=== PATIENT | female | born 1930 | race Caucasian/White ===

== ENCOUNTER 2017-05-13 21:49 | Emergency (ER) | payer MEDICARE, OTHER ==
[~2017-05-13] VITALS: Ht 157.5 cm; Wt 63.5 kg
--- NOTE | 2017-05-13 22:16 | NUR ---
BIB [facility], C/O OF SOB, COUGH FOR 3 WEEKS, NAD NOTED, VSS, RESP EVEN AND UNLABORED, PT IS ON OXYGEN VIA NC 2LPM, SAT 99%, PT WAS PUT ON GOWN AND MONITOR, AT .
--- NOTE | 2017-05-13 22:43 | NUR ---
BLOOD AND FLU SWAB SENT TO LAB.
[2017-05-13 23:09] LABS: BASOPHILS % (AUTO) 0.2 % (0.0-2.0); EOSINOPHILS % (AUTO) 0.4 % (0.0-6.0); HEMATOCRIT 34 % (33-45); HEMOGLOBIN 11.6 g/dL (11.5-14.8); LYMPHOCYTES # (AUTO) 1.2 /CMM (0.8-4.8); LYMPHOCYTES % (AUTO) 14.7 % (20.0-44.0); MEAN CORPUSCULAR HEMOGLOBIN 28 PG (26.0-33.0); MEAN CORPUSCULAR HGB CONC 34 g/dl (31.0-36.0); MEAN CORPUSCULAR VOLUME 81 fL (82-100); MONOCYTES # (AUTO) 0.8 /CMM (0.1-1.30); MONOCYTES % (AUTO) 9.9 % (2.0-12.0); NEUTROPHILS # (AUTO) 6.2 /CMM (1.8-8.9); NEUTROPHILS % (AUTO) 74.8 % (43.0-81.0); PLATELET COUNT (AUTO) 219 /CMM (150-450); RDW COEFFICIENT OF VARIATION 12.9 (11.5-15.0); RED BLOOD CELL COUNT(AUTO) 4.19 MIL/uL (4.0-5.2); WHITE BLOOD COUNT (AUTO) 8.3 K/uL (4.3-11.0)
[2017-05-13 23:23] LABS: CALCIUM, SERUM 8.4 mg/dL (8.5-10.1); CARBON DIOXIDE 29 mmol/L (21-32); CHLORIDE 96 mmol/L (98-107); CREATININE 0.7 mg/dL (0.6-1.3); GLUCOSE 137 mg/dL (74-106); POTASSIUM 3.7 mmol/L (3.5-5.1); SODIUM SERUM 133 mmol/L (136-145); UREA NITROGEN, BLOOD 12 mg/dL (7-18)
[2017-05-14 02:19] VITALS: BP 135/41
--- NOTE | 2017-05-14 03:29 | NUR ---
Patient discharged to home in stable condition. Written and verbal after care instructions given. Patient verbalizes understanding of instruction.IV removed. Catheter intact and site benign. Pressure and 4x4 applied to site. No bleeding noted. pt ambulatory with a steady gait
== END 2017-05-14 03:30 | disposition home or self-care (01) ==
LOC: ER 21:52
DX: R05 Cough (principal)
CPT/HCPCS: 36415; 71045; 80048; 85025; 87804; 99285; A4606; 87400; Z7610

== ENCOUNTER 2018-03-31 16:05 | Emergency (ER) | payer MEDICARE, OTHER ==
[~2018-03-31] VITALS: Ht 167.6 cm; Wt 65.8 kg
--- NOTE | 2018-03-31 16:16 | NUR ---
PT BIB [facility] WITH A C/O SLIP AND FALL IN THE BATHTUB. PT HAS A LAC ON BACK OF HEAD. - KO. PT'S CAREGIVER STATED THAT THE PT WAS WASHED AND DRESSED. CAREGIVER WAS DRYING PT'S HAIR, WHEN THE PHONE RANG. THE CAREGIVER STEPPED AWAY FOR A MOMENT TO GET THE PHONE AND THE PT TRIED TO GET INTO THE BATH AND SLIPPED. PT DENIES ANY NECK OR BACK PAIN. PT IS ABLE TO MOVE ALL EXTREMITIES. NO SHORTENING NOTED. PT IS SLIGHTLY HYPERTENSIVE.
[2018-03-31] MEDS ORDERED: TDAP [DIPH/PERTUSSIS/TET] 0.5 ML VIAL IM ONE ×2 (16:23→16:30)
[2018-03-31 16:31] LABS: BASOPHILS # (AUTO) 0.1 /CMM (0.0-0.2); BASOPHILS % (AUTO) 0.8 % (0.0-2.0); EOSINOPHILS % (AUTO) 0.4 % (0.0-6.0); HEMATOCRIT 38 % (33-45); HEMOGLOBIN 12.5 g/dL (11.5-14.8); LYMPHOCYTES % (AUTO) 21.4 % (20.0-44.0); MEAN CORPUSCULAR HGB CONC 32 g/dl (31.0-36.0); MEAN CORPUSCULAR VOLUME 83 fL (82-100); MONOCYTES # (AUTO) 0.8 /CMM (0.1-1.30); MONOCYTES % (AUTO) 7.9 % (2.0-12.0); NEUTROPHILS # (AUTO) 6.6 /CMM (1.8-8.9); NEUTROPHILS % (AUTO) 69.5 % (43.0-81.0); PLATELET COUNT (AUTO) 189 /CMM (150-450); RED BLOOD CELL COUNT(AUTO) 4.61 MIL/uL (4.0-5.2); WHITE BLOOD COUNT (AUTO) 9.5 K/uL (4.3-11.0)
[2018-03-31 16:47] LABS: CALCIUM, SERUM 8.4 mg/dL (8.5-10.1); CARBON DIOXIDE 29 mmol/L (21-32); CHLORIDE 102 mmol/L (98-107); CREATININE 0.8 mg/dL (0.6-1.3); GLUCOSE 140 mg/dL (74-106); POTASSIUM 4.4 mmol/L (3.5-5.1); SODIUM SERUM 139 mmol/L (136-145); UREA NITROGEN, BLOOD 19 mg/dL (7-18)
--- NOTE | 2018-03-31 17:00 | NUR ---
SORAIDA AND LIDO AT THE BEDSIDE FOR
[2018-03-31] MEDS ORDERED: LIDOCAINE HCL/PF 1% 30 ML SDV ONE (17:06)
--- NOTE | 2018-03-31 17:23 | NUR ---
PT REC'D SORAIDA.
[2018-03-31 17:46] VITALS: BP 158/72
[2018-03-31] MEDS ORDERED: ONDANSETRON 4 MG TAB.RAPDIS ONE (17:54)
[2018-03-31] MEDS ORDERED: ONDANSETRON 4 MG TAB.RAPDIS SL ONE (18:00)
--- NOTE | 2018-03-31 18:00 | NUR ---
PT VOMITTED X1. MD NOTIFIED AND NEW ORDERS GIVEN.
--- NOTE | 2018-03-31 18:13 | NUR ---
PT LEFT VIA WC. VSS. NAD NOTED. NO EMESIS NOTED. Patient discharged to home in stable condition. Written and verbal after care instructions given. Patient's daughter verbalizes understanding of instruction.
== END 2018-03-31 18:14 | disposition home or self-care (01) ==
LOC: ER 16:07
DX: S01.01XA Laceration without foreign body of scalp, initial encounter (principal); R55 Syncope and collapse; R07.89 Other chest pain; W18.09XA Striking against other object with subsequent fall, initial encounter; Y93.89 Activity, other specified; Y92.89 Other specified places as the place of occurrence of the external cause; Y99.8 Other external cause status
CPT/HCPCS: 12002; 36415; 70450; 71045; 80048; 84484; 85025; 85730; 90471; 90715; 93005; 99284; A4606; A6402; J3490; Q0162

== ENCOUNTER 2018-12-19 23:02 | Inpatient (IN) | payer MEDICARE, OTHER ==
[~2018-12-19] VITALS: Ht 154.9 cm; Wt 71.2 kg
--- NOTE | 2018-12-19 23:32 | NUR ---
KERA FROM HOME. TO ER BED 4. PETR AT BEDSIDE FOR INFORMATION. PT IS ALERT AND AWAKE. BROUGHT IN FOR C/O SOB. ACCORDING TO PETR PT HAS BEEN HAVING SOB AND CNOPN PRODUCTIVE COUGH FOR THE PAST 4-5 DAYS. PETR REPORTS THAT SHE HAS BEEN GIVING THE NEBULIZER BREATHIGNTX BUT IS NOT EFFECTIVE. NO RESP DISTRESS NOTED DURING ASSESSMENT, SATTING 100% ON RA, BREATHING EVEN AND UNLABORED. PT IS FEBRILE @ 101.9 AWAITING MD FOR EVAL.
--- NOTE | 2018-12-19 23:32 | NUR ---
Note undone in EDM - 12/19/18 at 2339 by FREEMAN BIBFAMILY FROM HOME. TO ER BED 4. PETR AT BEDSIDE FOR INFORMATION. PT IS ALERT AND AWAKE. BROUGHT IN FOR C/O SOB. ACCORDING TO PETR PT HAS BEEN HAVING SOB AND CNOPN PRODUCTIVE COUGH FOR THE PAST 4-5 DAYS. PETR REPORTS THAT SHE HAS BEEN GIVING THE NEBULIZER BREATHIGNTX BUT IS NOT EFFECTIVE. NO RESP DISTRESS NOTED DURING ASSESSMENT, SATTING 100% ON RA, BREATHING EVEN AND UNLABORED. AWAITING MD FOR EVAL.
[2018-12-20] VITALS (8 sets, daily range): BP systolic 129–155; BP diastolic 70–80
[2018-12-20] MEDS ORDERED: methylPREDNISolone SOD SUCC 125 MG/2ML VIAL ONE (00:10)
[2018-12-20] MEDS ORDERED: IPRATROPIUM NEB FS 0.5 MG/2.5 ML AMPUL.NEB NEB ONE (00:30)
[2018-12-20] MEDS ORDERED: ALBUTEROL FS 2.5 MG/3 ML VIAL.NEB NEB ONE (00:30)
[2018-12-20] MEDS ORDERED: methylPREDNISolone SOD SUCC 125 MG/2ML VIAL IV ONE (00:30)
--- NOTE | 2018-12-20 00:30 | NUR ---
RT PAGED FOR BREATHING TX
--- NOTE | 2018-12-20 00:30 | NUR ---
PT NOTED WITH BILAT LOWER LEG REDNESS AND SWELLING
[2018-12-20 00:35] LABS: BASOPHILS # (AUTO) 0.2 /CMM (0.0-0.2); BASOPHILS % (AUTO) 1.1 % (0.0-2.0); EOSINOPHILS % (AUTO) 1.2 % (0.0-6.0); HEMATOCRIT 34 % (33-45); HEMOGLOBIN 11.2 g/dL (11.5-14.8); LYMPHOCYTES # (AUTO) 1.8 /CMM (0.8-4.8); LYMPHOCYTES % (AUTO) 12.7 % (20.0-44.0); MEAN CORPUSCULAR HGB CONC 33 g/dl (31.0-36.0); MEAN CORPUSCULAR VOLUME 82 fL (82-100); MONOCYTES # (AUTO) 1.2 /CMM (0.1-1.30); MONOCYTES % (AUTO) 8.3 % (2.0-12.0); NEUTROPHILS # (AUTO) 10.9 /CMM (1.8-8.9); NEUTROPHILS % (AUTO) 76.7 % (43.0-81.0); PLATELET COUNT (AUTO) 225 /CMM (150-450); RED BLOOD CELL COUNT(AUTO) 4.18 MIL/uL (4.0-5.2); WHITE BLOOD COUNT (AUTO) 14.3 K/uL (4.3-11.0)
[2018-12-20] MEDS ORDERED: ALBUTEROL FS 2.5 MG/3 ML VIAL.NEB ONE (00:50)
[2018-12-20] MEDS ORDERED: IPRATROPIUM NEB FS 0.5 MG/2.5 ML AMPUL.NEB ONE (00:50)
[2018-12-20] MEDS ORDERED: VANCOMYCIN 1 GM VIAL ONE (01:03)
[2018-12-20] MEDS ORDERED: ACETAMINOPHEN ES 500 MG TABLET ONE (01:03)
[2018-12-20 01:08] LABS: CALCIUM, SERUM 8.8 mg/dL (8.5-10.1); CARBON DIOXIDE 27 mmol/L (21-32); CHLORIDE 103 mmol/L (98-107); CREATININE 0.8 mg/dL (0.6-1.3); GLUCOSE 125 mg/dL (74-106); POTASSIUM 3.7 mmol/L (3.5-5.1); SODIUM SERUM 138 mmol/L (136-145); UREA NITROGEN, BLOOD 17 mg/dL (7-18)
[2018-12-20 01:21] LABS: ALANINE AMINOTRANSFERASE 11 U/L (12-78); ALBUMIN 2.9 g/dL (3.4-5.0); ALKALINE PHOSPHATASE 95 U/L (46-116); ASPARTATE AMINOTRANSFERASE 17 U/L (15-37); B-TYPE NATRIURETIC PEPTIDE 417 PG/ML (0-125); BILIRUBIN,DIRECT 0.1 mg/dL (0.0-0.2); BILIRUBIN,TOTAL 0.4 mg/dL (0.2-1.0); TOTAL PROTEIN, SERUM 7.5 g/dL (6.4-8.2)
[2018-12-20] MEDS ORDERED: LEVOFLOXACIN 750 MG /D5W 150ML 150 ML IV ONE ×2 (01:30→02:52)
[2018-12-20] MEDS ORDERED: VANCOMYCIN 1 GM in IV D5W 250 ML IV ONE (01:30)
[2018-12-20] MEDS ORDERED: ACETAMINOPHEN ES 500 MG TABLET PO ONE (01:30)
--- NOTE | 2018-12-20 01:44 | NUR ---
CALLED RN SUP FOR TELE BED.
--- NOTE | 2018-12-20 01:46 | NUR ---
DR. MCHUGH SPOKE TO DIANE GEORGE REGARDING ADMISSION
--- NOTE | 2018-12-20 02:06 | NUR ---
TELE 309-2
[2018-12-20] MEDS ORDERED: MAGNESIUM HYDROXIDE 30 ML UDC PO PRN (02:30)
[2018-12-20] MEDS ORDERED: MAG HYDROX/AL HYDROX/SIMETH 30 ML UDC PO PRN (02:30)
[2018-12-20] MEDS ORDERED: Z GUARD REMEDY 2 OZ OINT TP PRN (02:30)
[2018-12-20] MEDS ORDERED: ACETAMINOPHEN 325 MG TABLET PO PRN (02:30)
[2018-12-20] MEDS ORDERED: HYDROCODONE/APAP 5/325MG 1 EACH TABLET PO PRN (02:30)
[2018-12-20] MEDS ORDERED: ONDANSETRON HCL/PF 4 MG/2 ML VIAL IVP PRN (02:30)
[2018-12-20] MEDS ORDERED: ZOLPIDEM TARTRATE 5 MG TABLET PO PRN (02:30)
--- NOTE | 2018-12-20 03:09 | NUR ---
REPORT GIVEN TO NICHOLAS CORBIN FOR TELE BED 309-2
[2018-12-20 03:14] LABS: BILIRUBIN,URINE NEGATIVE (NEGATIVE); BLOOD, URINE TRACE-INTA Ery/uL (NEGATIVE); COLOR,URINE YELLOW (YELLOW); KETONES,URINE NEGATIVE (NEGATIVE); LEUKOCYTE ESTERASE ,URINE MODERATE (NEGATIVE); NITRITE, URINE NEGATIVE (NEGATIVE); PROTEIN,URINE TRACE mg/dl (NEGATIVE); UGLUCOSE NEGATIVE (NEGATIVE); UROBILINOGEN,URINE 0.2 EU/dL (0.2)
[2018-12-20] MEDS ORDERED: ENOXAPARIN SODIUM 60 MG/0.6 ML DISP.SYRIN SQ ONE (03:22)
[2018-12-20] MEDS ORDERED: ENOXAPARIN SODIUM 60 MG/0.6 ML DISP.SYRIN SQ SCH (03:30)
--- NOTE | 2018-12-20 03:35 | NUR ---
INTER COM INSTALLERWASHER CUTTER NOTES Received patient from ER, via rney, accompanied by 2 ER staff. Admitted to telemetry 309-2 due to Sepsis under the service of DIANE Ellis. Assisted patient to bed comfortably. Patient noted unable to ambulate. Admission routine done. Patient belongings inventory completed by the assigned PROCESS OWNER. Daughter at bedside for information. Initial skin assessment done, photos taken and documented. With Levaquin on going, to consumed as ordered. Put on tele monitor with NSR noted. Kept patient on bed clean, dry and comfortable. Instructed on the use of call light and emphasized to patient and family the importance of calling for help when getting off the bed. Admission orders noted and carried out. Elevated bilateral heel with a pillow. Patient needs reinforcement. Bed alarm on, on fall precautions. Call light at bedside. Will continue to monitor accordingly.
[2018-12-20 04:40] LABS: APPEARANCE,URINE HAZY (CLEAR)
[2018-12-20 04:42] LABS: WBC,URINE 21-50 /HPF (0-3)
[2018-12-20 04:43] LABS: BACTERIA,URINE Moderate /HPF (None Seen); MUCUS,URINE Few /LPF (None Seen); SQUAMOUS EPITHELIAL CELL,UR Few /HPF (None Seen)
--- NOTE | 2018-12-20 05:15 | NUR ---
MARKER ASSEMBLER NOTES Patient attempted to get off the bed without using the call light. Nurses alerted. Patient wanted to walk to the bathroom. Attempted to assist the patient to get out of bed. Patient complained she is feeling dizzy. Patient noted unable to stand despite the assistance. Provided bedside commode. Utilized 2-person assist. Patient able to sit on commode, no output noted. Assisted patient back to bed comfortably. On fall precautions. Will continue to monitor accordingly.
--- NOTE | 2018-12-20 06:33 | NUR ---
PASSENGER CONDUCTOR CLOSING NOTES Patient asleep on bed, on tele monitor, NSR noted. On RA, no SOB/respiratory distress noted. No s/sx of discomfort noted at this time. With peripheral IV line R hand G#20 SL, flushed with NS accordingly, no s/sx of infiltration noted. Monitored patient constantly and PRN. On fall precautions, call light within easy reach. Endorsed to the next shift.
[2018-12-20 06:44] LABS: BASOPHILS % (AUTO) 0.2 % (0.0-2.0); HEMATOCRIT 35 % (33-45); HEMOGLOBIN 11.1 g/dL (11.5-14.8); LYMPHOCYTES # (AUTO) 0.8 /CMM (0.8-4.8); MEAN CORPUSCULAR HGB CONC 32 g/dl (31.0-36.0); MEAN CORPUSCULAR VOLUME 82 fL (82-100); MONOCYTES # (AUTO) 0.3 /CMM (0.1-1.30); MONOCYTES % (AUTO) 2.1 % (2.0-12.0); NEUTROPHILS % (AUTO) 91.7 % (43.0-81.0); PLATELET COUNT (AUTO) 220 /CMM (150-450); RED BLOOD CELL COUNT(AUTO) 4.24 MIL/uL (4.0-5.2); WHITE BLOOD COUNT (AUTO) 13.1 K/uL (4.3-11.0)
[2018-12-20 06:55] LABS: CALCIUM, SERUM 8.8 mg/dL (8.5-10.1); CREATININE 0.9 mg/dL (0.6-1.3); PHOSPHORUS 3.1 mg/dL (2.5-4.9)
--- NOTE | 2018-12-20 07:20 | NUR ---
TELE/RN NOTE THE PATIENT IS RECEIVED IN BED. PATIENT IS AWAKE, ALERT AND ORIENTED TO SELF. ABLE TO MAKE NEEDS KNOWN VERBALLY. THE PATIENT IS IN NO APPARENT DISTRESS. DENIES PAIN. IN ROOM AIR AND DENIES SOB.RIGHT HAND G 20 PATENT AND SALINE LOCKED. BED LOW AND LOCKED. SIDE RAILS UP X3. CALL LIGHT WITHIN REACH. WILL CONTINUE TO MONITOR.
[2018-12-20] MEDS ORDERED: FEE PK DOSING 1 MIN EA MC ONE (07:57)
[2018-12-20] MEDS ORDERED: ASPI-1152 PO (08:51)
[2018-12-20] MEDS ORDERED: CYAN100096 PO (08:51)
[2018-12-20] MEDS ORDERED: MULT-24 PO (08:51)
[2018-12-20] MEDS ORDERED: DONE5TAB34 PO (08:51)
[2018-12-20] MEDS ORDERED: LEVO88TA5 PO (08:51)
[2018-12-20] MEDS ORDERED: AMLO5TAB9 PO (08:51)
[2018-12-20] MEDS ORDERED: DIAZ5TAB4 PO (08:51)
[2018-12-20] MEDS ORDERED: PROM118S4 PO (08:51)
[2018-12-20] MEDS ORDERED: PANT40TA4 PO (08:51)
--- NOTE | 2018-12-20 09:59 | NUR ---
MS/RN NOTE RECEIVED ORDER FROM MIRTHA SINGH FOR PT EVAL ORDER. THE ORDER IS READ BACK, VERIFIED. NOTED AND CARRIED OUT.
[2018-12-20] MEDS ORDERED: DIAZEPAM 5 MG TABLET PO PRN (10:30)
[2018-12-20] MEDS ORDERED: AMLODIPINE BESYLATE 5 MG TABLET PO PRN (10:30)
[2018-12-20] MEDS: DONEPEZIL 5 MG TABLET PO SCH (12:08)
[2018-12-20] MEDS: MULTIVITAMINS,THERAGRAN 1 UDTAB TABLET PO SCH (12:08)
[2018-12-20] MEDS: LEVOTHYROXINE SODIUM 88 MCG TABLET PO SCH (12:08)
[2018-12-20] MEDS: PANTOPRAZOLE 40 MG TABLET.DR PO SCH (12:08)
[2018-12-20] MEDS: ASPIRIN EC 81 MG TABLET.DR PO SCH (12:08)
--- NOTE | 2018-12-20 17:44 | NUR ---
MS/RN NOTE BLOOD PRESSURE IS NOTED 155/80 AND PULSE 78. PRN NORVASC 50MG PO IS GIVEN. WILL CONTINUE TO MONITOR. THE PATIENT IS IN NO APPARENT DISTRESS AT THIS TIME.
--- NOTE | 2018-12-20 18:27 | NUR ---
MS/RN NOTE RECHECKED BLOOD PRESSURE, PULSE AND NOTED 138/76 AND PULSE 75. THE PATIENT IN NO APPARENT DISTRESS.
--- NOTE | 2018-12-20 18:29 | NUR ---
MS/RN NOTE THE PATIENT IS ALERT AND ORIENTED X1. IN ROOM AIR AND SATURATION IS AT 97%. DENIES SOB. RESPIRATION REGULAR AND UNLABORED. DENIES PAIN. THE PATIENT IN NO APPARENT DISTRESS. RIGHT HAND G 20 PATENT AND SALINE LOCKED. BED LOW AND LOCKED. SIDE RAILS UP X3. BED ALARM ON. CALL LIGHT WITHIN REACH. WILL CONTINUE TO MONITOR.
--- NOTE | 2018-12-20 19:43 | NUR ---
MS RN OPENING NOTES RECEIVED PATIENT FROM MORNING SHIFT, ALERT AND ORIENTED X 1-2 KYRGYZ SPEAKING. AFEBRILE WITH NO S/S OF DISTRESS OBSERVED. BREATHING REGULAR AND UNLABORED ON ROOM AIR. RIGHT HAND G20 IV LINE INTACT AND PATENT WITH NO BLEEDING AND S/S OF INFECTION/INFILTRATION NOTED. SEEN WITH BILATERAL LOWER EXTREMITIES +3 EDEMA, BOTH LEGS KEPT ELEVATED. BRP, ASSISTED TO SIT ON THE BEDSIDE COMMODE WITH CLEAR YELLOW URINE IN MODERATE AMOUNT. BED LOW AND LOCKED ON SEMI FOWLERS POSITION. CALL LIGHT IN REACH. WILL CONTINUE TO MONITOR.
--- NOTE | 2018-12-21 01:00 | NUR ---
MS RN NOTES PATIENT VERBALIZED WANTING TO SLEEP, AMBIEN GIVEN BY MOUTH. WILL CONTINUE TO MONITOR.
[2018-12-21 06:26] LABS: CALCIUM, SERUM 8.9 mg/dL (8.5-10.1); CREATININE 0.8 mg/dL (0.6-1.3); POTASSIUM 4.5 mmol/L (3.5-5.1)
--- NOTE | 2018-12-21 06:41 | NUR ---
MS RN CLOSING NOTES PATIENT IN BED ALERT AND ORIENTED X 1 LATVIAN SPEAKING. AFEBRILE WITH NO S/S OF DISTRESS OBSERVED. BREATHING REGULAR AND UNLABORED ON ROOM AIR. RIGHT HAND G20 IV LINE INTACT AND PATENT WITH NO BLEEDING AND S/S OF INFECTION/INFILTRATION NOTED. BRP WITH ASSIST. BED LOW AND LOCKED ON SEMI FOWLERS POSITION. CALL LIGHT IN REACH. WILL ENDORSE TO MORNING SHIFT FOR ASHKAN.
[2018-12-21 08:00] VITALS: BP 124/69
[2018-12-21] MEDS: DONEPEZIL 5 MG TABLET PO SCH (09:05)
[2018-12-21] MEDS: PANTOPRAZOLE 40 MG TABLET.DR PO SCH (09:05)
[2018-12-21] MEDS: MULTIVITAMINS,THERAGRAN 1 UDTAB TABLET PO SCH (09:05)
[2018-12-21] MEDS: ASPIRIN EC 81 MG TABLET.DR PO SCH (09:05)
[2018-12-21] MEDS: LEVOTHYROXINE SODIUM 88 MCG TABLET PO SCH (09:06)
[2018-12-21] MEDS ORDERED: GUAIFENESIN 300 MG/15 ML UDC PO PRN (10:00)
[2018-12-21 16:00] VITALS: BP 139/69
--- NOTE | 2018-12-21 19:10 | NUR ---
RN INITIAL NOTES: RECEIVED REPORT FROM FLOWER PETERSON. PT IN BED, AWAKE, A/O X1, CONFUSED, BASELINE PER DAUGHTER. PT ON FALL PRECAUTIONS. NOTED IV ACCESS LEAKING, WILL START A NEW ONE. RESPIRATIONS EVEN AND UNLABORED, NO FACIAL GRIMACE NOTED. APPEARS CLAM AND COMFORTABLE, BED SIDE COMMODE AVAILABLE. SAFETY PRECAUTIONS FOR FALL INITIATED CALL LIGHT IN REACH, WILL CONTINUE MONITORING PT.
--- NOTE | 2018-12-21 19:36 | NUR ---
Patient resting in bed. On RA, on room air with no distress noted. Denies pain at this time. With peripheral IV line R hand G#20 SL, flushed with NS . Patient prefer to use BSC , moderate assistance needed , on fall precautions, call light within easy reach. Endorsed to the next shift.
[2018-12-21 20:00] VITALS: BP 138/69
[2018-12-21] MEDS ORDERED: VANCOMYCIN 0.75 GM in IV D5W 250 ML IV SCH (20:00)
[2018-12-21 20:10] VITALS: BP 138/69
--- NOTE | 2018-12-22 01:02 | NUR ---
RN NOTES: PT PROVIDED WITH SNACK, CONSUMED 100%
--- NOTE | 2018-12-22 02:12 | NUR ---
PRN ROBITUSSIN: PRN ROBITUSSIN ADMINISTERED FOR COUGH.
[2018-12-22] MEDS ORDERED: LEVOFLOXACIN 750 MG /D5W 150ML 750 MG in PREMIX 1 EA IV SCH (03:00)
[2018-12-22 06:32] LABS: BASOPHILS % (AUTO) 0.3 % (0.0-2.0); EOSINOPHILS % (AUTO) 2.8 % (0.0-6.0); HEMATOCRIT 34 % (33-45); LYMPHOCYTES # (AUTO) 1.6 /CMM (0.8-4.8); LYMPHOCYTES % (AUTO) 13.7 % (20.0-44.0); MEAN CORPUSCULAR HGB CONC 33 g/dl (31.0-36.0); MEAN CORPUSCULAR VOLUME 81 fL (82-100); MONOCYTES # (AUTO) 1.2 /CMM (0.1-1.30); MONOCYTES % (AUTO) 10.2 % (2.0-12.0); NEUTROPHILS # (AUTO) 8.3 /CMM (1.8-8.9); PLATELET COUNT (AUTO) 253 /CMM (150-450); RED BLOOD CELL COUNT(AUTO) 4.18 MIL/uL (4.0-5.2); WHITE BLOOD COUNT (AUTO) 11.4 K/uL (4.3-11.0)
--- NOTE | 2018-12-22 06:40 | NUR ---
rn closing notes: pt in bed, sleeping, remains on 2l oxygen via nc, respirations even and unlabored. no facial grimace noted. iv access remains patent and flushing well, on hl. vs remains stable, needs attended. Safety precautions for fall remains engaged, call light in reach, will endorse to day rn for continuity of care.
[2018-12-22 06:49] LABS: CALCIUM, SERUM 8.3 mg/dL (8.5-10.1); CREATININE 0.8 mg/dL (0.6-1.3); POTASSIUM 4.3 mmol/L (3.5-5.1)
[2018-12-22 08:00] VITALS: BP 127/71
[2018-12-22] MEDS: ASPIRIN EC 81 MG TABLET.DR PO SCH (09:04)
[2018-12-22] MEDS: MULTIVITAMINS,THERAGRAN 1 UDTAB TABLET PO SCH (09:04)
[2018-12-22] MEDS: DONEPEZIL 5 MG TABLET PO SCH (09:04)
[2018-12-22] MEDS: LEVOTHYROXINE SODIUM 88 MCG TABLET PO SCH (09:04)
[2018-12-22] MEDS: PANTOPRAZOLE 40 MG TABLET.DR PO SCH (09:05)
[2018-12-22] MEDS: VANCOMYCIN 1 GM in IV D5W 250 ML IV SCH (11:22)
--- NOTE | 2018-12-22 11:22 | NUR ---
MS/RN NOTE VANCOMYCIN 1 GM DUE AT 1000 IS ADMINISTERED AT 1122 BECAUSE THE PHARMACY`S LATE DELIVERY. PHARMACIST SONAM IS AWARE.
--- NOTE | 2018-12-22 13:23 | NUR ---
MS/RN NOTE THE PATIENT IS RECEIVED IN BED. PATIENT IS ALERT AND ORIENTED X1. DENIES PAIN. IN ROOM AIR AND DENIES SOB. RESPIRATION REGULAR AND UNLABORED. LFA G 20 PATENT AND SALINE LOCKED. BED LOW AND LOCKED. SIDE RAILS UP X3. CALL LIGHT WITHIN REACH. WILL CONTINUE TO MONITOR.
[2018-12-22 16:00] VITALS: BP 141/91
[2018-12-22] MEDS: LACTOBACILLUS RHAMNOSUS GG 1 EACH CAP.SPRINK PO SCH (17:56)
--- NOTE | 2018-12-22 18:15 | NUR ---
MS/RN NOTE THE PATIENT IS ALERT AND ORIENTED X1. IN ROOM AIR AND SATURATION IS AT 93%. DENIES SOB. RESPIRATION REGULAR AND UNLABORED. DENIES PAIN. THE PATIENT IN NO APPARENT DISTRESS. LFA G 22 PATENT AND SALINE LOCKED. PATIENT IN STABLE CONDITION. BED LOW AND LOCKED. SIDE RAILS UP X3. BED ALARM ON. CALL LIGHT WITHIN REACH. WILL ENDORSE TO EQUIPMENT TECHNICIAN.
--- NOTE | 2018-12-22 19:30 | NUR ---
MS RN OPENING NOTE RECEIVED PATIENT IN BED. A/OX1. BURMESE SPEAKING, ORIENTED TO CALL LIGHT, ABLE TO MAKE BASIC NEEDS KNOWN. TOLERATING ROOM AIR. RESPIRATIONS ARE EVEN AND UNLABORED. NO S/S SOB NOTED. DOESNT EXHIBIT AND S/S OF PAIN OR DISCOMFORT. IN NO APPARENT DISTRESS. IV ACCESS IN LFA#22 PATENT AND SALINE LOCKED. BED IS LOW AND LOCKED, SIDE RAILS UP X2, HOB ELEVATED 80 DEGREES. CALL LIGHT WITHIN REACH. WILL CONTINUE TO MONITOR.
[2018-12-22 20:00] VITALS: BP 147/67
[2018-12-22 20:11] VITALS: BP 147/67
[2018-12-23] MEDS: VANCOMYCIN 1 GM in IV D5W 250 ML IV SCH (04:05)
[2018-12-23 06:25] LABS: CALCIUM, SERUM 8.3 mg/dL (8.5-10.1); CREATININE 0.8 mg/dL (0.6-1.3); POTASSIUM 3.9 mmol/L (3.5-5.1)
--- NOTE | 2018-12-23 07:03 | NUR ---
MS RN CLOSING NOTE PATIENT IN BED. A/OX1. MALTESE SPEAKING. TOLERATING ROOM AIR. RESPIRATIONS ARE EVEN AND UNLABORED. NO SOB NOTED. NO S/S PAIN OR DISCOMFORT THROUGHOUT SHIFT. NO DISTRESS. IV ACCESS MAINTAINED LFA#22 PATENT AND SALINE LOCKED. BED REMAINS LOW AND LOCKED, SIDE RAILS UP X2, HOB ELEVATED 80 DEGREES. CALL LIGHT WITHIN REACH. WILL ENDORSE TO NEXT SHIFT FOR ASHKAN.
--- NOTE | 2018-12-23 07:30 | NUR ---
RN MS NOTES PT IN BED, AWAKE, ALERT AND ORIENTED, NO COMPLAINT OF PAIN, NOT IN DISTRESS, CALL LIGHT WITHIN REACH, KEPT WARM AND COMFORTABLE, NEEDS ATTENDED.
[2018-12-23 07:31] LABS: HEMATOCRIT 34 % (33-45); MEAN CORPUSCULAR VOLUME 82 fL (82-100); RED BLOOD CELL COUNT(AUTO) 4.21 MIL/uL (4.0-5.2); WHITE BLOOD COUNT (AUTO) 8.6 K/uL (4.3-11.0)
[2018-12-23 07:32] LABS: BASOPHILS % (AUTO) 0.2 % (0.0-2.0); EOSINOPHILS % (AUTO) 6.6 % (0.0-6.0); LYMPHOCYTES # (AUTO) 1.7 /CMM (0.8-4.8); LYMPHOCYTES % (AUTO) 19.6 % (20.0-44.0); MEAN CORPUSCULAR HGB CONC 32 g/dl (31.0-36.0); MONOCYTES # (AUTO) 0.9 /CMM (0.1-1.30); MONOCYTES % (AUTO) 10.2 % (2.0-12.0); NEUTROPHILS # (AUTO) 5.5 /CMM (1.8-8.9); NEUTROPHILS % (AUTO) 63.4 % (43.0-81.0); PLATELET COUNT (AUTO) 244 /CMM (150-450)
[2018-12-23 08:00] VITALS: BP 123/51
[2018-12-23] MEDS: DONEPEZIL 5 MG TABLET PO SCH (08:33)
[2018-12-23] MEDS: MULTIVITAMINS,THERAGRAN 1 UDTAB TABLET PO SCH (08:33)
[2018-12-23] MEDS: LACTOBACILLUS RHAMNOSUS GG 1 EACH CAP.SPRINK PO SCH ×2 (08:33→17:03)
[2018-12-23] MEDS: PANTOPRAZOLE 40 MG TABLET.DR PO SCH (08:33)
[2018-12-23] MEDS: ASPIRIN EC 81 MG TABLET.DR PO SCH (08:33)
[2018-12-23] MEDS: LEVOTHYROXINE SODIUM 88 MCG TABLET PO SCH (08:33)
--- NOTE | 2018-12-23 10:06 | NUR ---
RN MS NOTES PT IN BED, AWAKE, ALERT AND ORIENTED, SEEN AND EXAMINED BY DR. ALANIS, PLAN OF CARE DISCUSSED WITH PT, VERBALIZED UNDERSTANDING, CALL LIGHT WITHIN REACH.
[2018-12-23] MEDS ORDERED: LACT1CAP72 PO (14:06)
[2018-12-23] MEDS ORDERED: LEVO750T21 PO (14:06)
[2018-12-23 16:01] VITALS: BP 142/82
--- NOTE | 2018-12-23 18:29 | NUR ---
RN MS NOTES PT IN BED, AWAKE, ALERT AND ORIENTED, NOT IN PAIN OR DISTRESS, DAUGHTER AT BEDSIDE, PM MEDS GIVEN ORDERED, PM CARE PROVIDED, ALL NEEDS ATTENDED.
--- NOTE | 2018-12-23 19:48 | NUR ---
RN NOTES RECEIVED PATIENT AWAKE SITTING IN BED, SAFETY MEASURES IN PLACE, ASPIRATION PRECAUTION EMPHASIZE, CALL LIGHT WITHIN EASY REACH, AWAITING FOR RADIOLOGIC TECHNOLOGY PROGRAM DIRECTOR TO SNF, ALL NEEDS ANTICIPATED. WILL MONITOR ACCORDINGLY.
[2018-12-23 20:02] VITALS: BP 154/75
[2018-12-23 20:08] VITALS: BP 134/72
--- NOTE | 2018-12-23 21:05 | NUR ---
BALLPOINT PEN CARTRIDGE TESTER NOTES: PICKED UP BY EMT JOSE ENRIQUE, ALL NEEDS ATTENDED, REPORT GIVEN, PATIENT IN STABLE CONDITION, NO SIGNS OF ACUTE DISTRESS, DENIES ANY PAIN OR DISCOMFORT. DISCONTINUE IV ACCESS, KEPT WARM DRY AND COMFORTABLE, PULL UPS ON, PURPLE ROBE ON. DISCHARGED PATIENT ACCORDING TO HOSPITAL PROTOCOL. LEFT AT 2100 CHARGE NURSE AWARE.
--- NOTE | 2018-12-23 21:08 | NUR ---
RN NOTES CALLED AND SPOKE TO DAUGHTER KATHRYN ) REQUESTED, INFORMED HER REGARDING MOM / PATIENT PICKED UP BY EMT, IN STABLE CONDITION, ALL NEEDS ATTENDED.
== END 2018-12-23 21:00 | DRG 193 ==
LOC: ER 23:03 → TELE 12-20 02:46 → MED 12-20 08:44
PROVIDERS: ADMIT Nurse Practitioner Acute Care; ATTEND Family Medicine
DX: J15.9 Unspecified bacterial pneumonia (principal); G93.41 Metabolic encephalopathy; E44.1 Mild protein-calorie malnutrition; N39.0 Urinary tract infection, site not specified; I10 Essential (primary) hypertension; F03.90 Unspecified dementia, unspecified severity, without behavioral disturbance, psychotic disturbance, mood disturbance, and anxiety; J45.909 Unspecified asthma, uncomplicated; B96.20 Unspecified Escherichia coli [E. coli] as the cause of diseases classified elsewhere; K21.9 Gastro-esophageal reflux disease without esophagitis; E03.9 Hypothyroidism, unspecified; Z87.891 Personal history of nicotine dependence; B95.1 Streptococcus, group B, as the cause of diseases classified elsewhere; E88.09 Other disorders of plasma-protein metabolism, not elsewhere classified; D72.829 Elevated white blood cell count, unspecified; R50.9 Fever, unspecified; Z68.29 Body mass index [BMI] 29.0-29.9, adult
CPT/HCPCS: 36415; 71045-TC; 80048-TC; 80061-TC; 80076-TC; 80202-TC; 81000-TC; 83605-TC; 83735-TC; 83880; 84100-TC; 84484-TC; 85025-TC; 85378-TC; 87040-TC; 87081-TC; 87086-TC; 93307-TC; 93970-TC; 97110-TC; 97112-TC; 97116-TC; 97530-TC; A4216; G0378; J1650; J1956; J2930; J3370; J7050; J7060